=== PATIENT | male | born 1970 | race Caucasian/White ===

== ENCOUNTER 2025-02-19 06:51 | Day surgery (SDC) | payer OTHER ==
[2025-02-17 15:30] VITALS: BMI 26.9
[2025-02-19] MEDS ORDERED: PROPOFOL 60 ML ONE (07:33)
[2025-02-19 08:55] VITALS: RESP 18; TEMP 97.8
[2025-02-19 09:09] VITALS: BP 115/79; PULSE 89
== END 2025-02-19 09:15 | disposition home or self-care (01) ==
LOC: FASU-ENDO 06:51
PROVIDERS: ATTEND Internal Medicine Gastroenterology
PROC: 0DBH8ZX Excision of Cecum, Via Natural or Artificial Opening Endoscopic, Diagnostic (ICD-10-PCS; 2025-02-19)
PROC: 0DBK8ZX Excision of Ascending Colon, Via Natural or Artificial Opening Endoscopic, Diagnostic (ICD-10-PCS; principal; 2025-02-19 08:12)
DX: Z12.11 Encounter for screening for malignant neoplasm of colon (principal); D12.0 Benign neoplasm of cecum; K63.5 Polyp of colon
CPT/HCPCS: 88305-TC